=== PATIENT | female | born 1975 | race Caucasian/White ===

== ENCOUNTER 2016-05-26 19:15 | Emergency (ER) | payer MEDICAID ==
[2016-05-26] MEDS ORDERED: DUONEB INH ONE (20:08)
[2016-05-26] MEDS ORDERED: ACETAMINOPHEN 325 MG TAB ONE (20:36)
== END 2016-05-26 21:17 | disposition home or self-care (01) ==
LOC: FASTR 19:15
DX: R50.9 Fever, unspecified (principal); J06.9 Acute upper respiratory infection, unspecified
CPT/HCPCS: 71020; 87804; 87880; 94640